=== PATIENT | male | born 1955 | race Caucasian/White ===

== ENCOUNTER 2021-09-23 16:17 | Outpatient (RCR) | payer BC, SELFPAY | END 2021-11-25 14:17 | disposition home or self-care (01) | PROVIDERS: PCP Family Medicine; Visit Provider Family Medicine | DX: M54.50 Low back pain, unspecified (principal); M54.16 Radiculopathy, lumbar region; Z51.89 Encounter for other specified aftercare | CPT/HCPCS: 97110 ==

== ENCOUNTER 2023-03-20 14:45 | Outpatient (RCR) | payer BC, SELFPAY | END 2023-06-12 11:23 | disposition home or self-care (01) | PROVIDERS: PCP Family Medicine; Visit Provider Family Medicine | DX: M25.561 Pain in right knee (principal); M25.562 Pain in left knee; G89.29 Other chronic pain; M25.661 Stiffness of right knee, not elsewhere classified; M25.662 Stiffness of left knee, not elsewhere classified; M62.81 Muscle weakness (generalized); Z51.89 Encounter for other specified aftercare | CPT/HCPCS: 97110; 97140; 97161 ==

== ENCOUNTER 2024-09-19 06:09 | Day surgery (SDC) | payer BC, SELFPAY ==
[2024-09-19] VITALS (17 sets, daily range): BP systolic 110–146; BP diastolic 62–91; PULSE 52–84; RESP 14–16; TEMP 36.2–36.9; O2SAT 90–97; BMI 31.8
[2024-09-19] MEDS: LACTATED RINGERS 1000 ML 1,000 ML 100 ML IV (06:20)
[2024-09-19] MEDS: SODIUM CHLORIDE 0.9 % (FLUSH) 10 ML SYRINGE IVF (06:41)
--- NOTE | 2024-09-19 07:39 | P.GSOP_ITS ---
Operative Note Date of procedure: 09/19/24 Pre-op diagnosis: 5 cm reducible ventral hernia Post-op diagnosis: Same Type of Procedure: Open repair reducible 5 cm ventral hernia with permanent mesh Indications: The patient is a 68-year-old male who has a supraumbilical ventral hernia which has become quite sizable over the past few years. He desires repair and after discussion of options, he agreed to proceed. Procedure Description: After discussing the risks and benefits of the procedure, the patient signed informed consent.? The operative site was marked and the patient was brought to the operating room and placed on the operating table in supine position.? Care was taken to pad the patient's pressure points.?? The patient was then intubated by anesthesia.??A TAP block was then performed. Please see anesthesia's note for details The operative site was then prepped and draped in the usual sterile fashion.? A time-out was then performed. A midline incision was made above the umbilicus over the palpable hernia defect. Dissection was taken down into the subcutaneous fat. The hernia sac was encountered. This was dissected free from the surrounding subcutaneous fat. It appeared to contain omental fat. This was able to be reduced. The hernia defect was examined. This was approximately 1.5 cm. Superior to this there appeared to be an additional hernia. This was similarly dissected free from the subcutaneous fat. It also contained omental fat, but this did not completely reduce. The hernia sac was then opened and the omentum was found to be adherent to the peritoneum within the hernia sac. This was taken down carefully using cautery. The excess sac was excised. There was some pericolonic fat which was also adherent to the hernia neck. This was carefully taken down with care to avoid injuring the bowel. Once the omentum was completely freed from the peritoneum, the fascial edges were examined. There was a larger defect as well as a more inferior smaller defect. There was a fascial bridge of 0.5 cm. This was divided, creating 1 defect. I grasped the fascial edges with Neena clamps and was able to pull them together, despite the 5 cm gap. The patient had lost a significant amount of weight and had significant laxity to his abdominal wall. I therefore elected to begin by creating a preperitoneal space to see if a preperitoneal repair would be possible, preserving the retrorectus space. Using a combination of cautery and blunt dissection I dissected the peritoneum from the posterior fascia circumferentially for at least 5 cm in all directions. I carefully examined the fascia posterior to the umbilicus. No hernia was noted here. I then again pulled the fascial edges together. They came together without significant tension. Therefore I elected to proceed with a preperitoneal repair. The hernia defect measured 5 x 5 cm. I obtained a piece of Ventralight mesh and trimmed to 15 x 15 cm. This was placed in the preperitoneal space to ensure it laid flat. A small amount of dissection was needed to enlarge the space. Once this was done, the peritoneum was closed in a running fashion with 3-0 Vicryl suture. The mesh was then placed into the space and secured in place, 1st with lateral trans fascial sutures using 2 0 PDS. This was done by creating a stab incision in the skin at the 3 and 9 o'clock positions. The PDS was sutured and secured to the mesh and then pulled through the fascia and skin using a Vijay-Clint device. I then used 1. PDS to place additional transfascial sutures at 2, 5, 7 and 11 o'clock positions. This was done again using the Vijay-Clint device, however rather than passing through the skin, because the patient's abdominal wall and skin was still lax, I was able to dissect the subcutaneous fat over the fascia in the area I plan to secure the suture and passed the suture through this location, tying the suture in a subcutaneous location. Once this was done, the mesh was found to lay flat without wrinkles. The edges were evaluated to ensure they did not roll. Hemostasis appeared excellent. I then closed the fascial defect with 1. PDS in a running fashion. I did attach the mesh to the fascial closure. Then, because a large space had been left by the hernia, I onur sed the subcutaneous space with interrupted 2 0 Vicryl suture. The skin was then closed with 3-0 Vicryl dermal and 4-0 Monocryl running subcuticular suture. Glue was then applied. ? The patient was then woken and transported to the recovery area in stable condition. ? The patient tolerated the procedure well. Findings: 5 x 5 cm fat containing ventral hernia. Anesthesia: GETA Surgeon: Mónica Douglass MD Estimated blood loss (mL): 25 Condition: stable Disposition: PACU
--- NOTE | 2024-09-19 07:39 | W.PM.H&PU ---
History & Physical Update History & Physical Update H&P Reviewed and patient assessed: No changes noted
--- NOTE | 2024-09-19 07:45 | W.PM.NB ---
Nerve Block Nerve Block Time Seen by Provider: 07:42 Date Seen: 09/19/24 Type of block requested by surgeon for post-operative analgesia: TAP Side: bilateral Time out performed: Yes Verification of patient name: Yes Verification of date of : Yes Site marking: site marked Name of person performing procedure: Yamil Continuous monitoring Was continuous monitoring of O2 sat, B/P, chain mortiser operator, recorded every 15 minutes?: Yes Procedure Checklist: sterile prep, needles and gloves Ultrasound guided. Images saved: Yes Medications given in 5ml increments after negative aspiration: Marcaine %: 0.25 mL: 30 Needle gauge: 20 and Exparel mL: 10 Patient tolerated procedure well: Yes Additional comments: Needle noted between internal oblique and transversus abdominus. Local spread visualized Block Charges Block Charge (with Pro Fee): TAP Bilateral Use of Ultrasound Machine for Block: Yes- US Guidance/pain block
--- NOTE | 2024-09-19 10:05 | P.ANES_ITS ---
Anesthesia Charges Start Date/Time Anesthesia Start Date: 09/19/24 Anesthesia Start Time: 07:20 Stop Date/Time Anesthesia Stop Date: 09/19/24 Anesthesia Stop Time: 10:00 Coding CPT Codes CPT Codes: ANESTH REPAIR OF HERNIA - 25686 ([id number]) P2 - PATIENT W/MILD SYST DISEASE, QK - FISH STRINGER ASSEMBLER 2-4 CNCRNT ANES PROC, QX - GUN NUMBER SVC W/ MD MED DIRECTION
--- NOTE | 2024-09-19 10:05 | W.ANESCHARGE ---
Anesthesia Charges Start Date/Time Anesthesia Start Date: 09/19/24 Anesthesia Start Time: 07:20 Stop Date/Time Anesthesia Stop Date: 09/19/24 Anesthesia Stop Time: 10:00 Coding CPT Codes CPT Codes: ANESTH REPAIR OF HERNIA - 55704 ([id number]) P2 - PATIENT W/MILD SYST DISEASE, QK - TOOLROOM HELPER 2-4 CNCRNT ANES PROC, QX - PRODUCT PLANNER SVC W/ MD MED DIRECTION
--- NOTE | 2024-09-19 10:41 | W.ANESCHARGE ---
Anesthesia Charges Start Date/Time Anesthesia Start Date: 09/19/24 Anesthesia Start Time: 07:20 Stop Date/Time Anesthesia Stop Date: 09/19/24 Anesthesia Stop Time: 10:00 Coding CPT Codes CPT Codes: ANESTH REPAIR OF HERNIA - 85903 ([id number]) P2 - PATIENT W/MILD SYST DISEASE, QK - GENERAL INSPECTOR 2-4 CNCRNT ANES PROC, QX - CHRISTIAN SCIENCE READER SVC W/ MD MED DIRECTION
--- NOTE | 2024-09-19 10:41 | P.ANES_ITS ---
Anesthesia Charges Start Date/Time Anesthesia Start Date: 09/19/24 Anesthesia Start Time: 07:20 Stop Date/Time Anesthesia Stop Date: 09/19/24 Anesthesia Stop Time: 10:00 Coding CPT Codes CPT Codes: ANESTH REPAIR OF HERNIA - 64259 ([id number]) P2 - PATIENT W/MILD SYST DISEASE, QK - HYDROLOGIST 2-4 CNCRNT ANES PROC, QX - TEXTILE CLOTHING AND FOOTWEAR MECHANIC SVC W/ MD MED DIRECTION
[2024-09-19] MEDS: ACETAMINOPHEN 325 MG TABLET 650 MG PO (12:30)
== END 2024-09-19 15:10 | disposition home or self-care (01) ==
PROVIDERS: PCP Family Medicine; Visit Provider Surgery
PROC: (CPT 49593; principal; 2024-09-19 07:30)
DX: K43.9 Ventral hernia without obstruction or gangrene (principal); G89.18 Other acute postprocedural pain; E11.9 Type 2 diabetes mellitus without complications; G47.33 Obstructive sleep apnea (adult) (pediatric); I10 Essential (primary) hypertension
CPT/HCPCS: 49593; 00750; 64488; 76942; A4467; A9270; C1781; J0330; J0665; J0666; J0690; J1100; J1885; J2405; J2704; J2710; J3010; J3490; J7120